=== PATIENT | female | born 1985 | race African-American/Black ===

== ENCOUNTER 2017-09-24 16:46 | Emergency (ER) | payer OTHER ==
--- NOTE | 2017-09-24 16:52 | PDOC ---
Rapid Medical Evaluation Time Seen by Provider: 09/24/17 16:47 Medical Evaluation: 09/24/17 16:47 I have performed a brief in-person evaluation of this patient. The patient presents with a chief complaint of: Left arm pain radiating to b/l shoulders and midsternal chest Pertinent physical exam findings: VSS. Lungs CTAB. 3+ systolic murmur loudest at 3rd ICS left sternal border I have ordered the following: EKG, CXR, urine, labs The patient will proceed to the ED for further evaluation. Discharge Disposition - Diagnosis Chest pain - Referrals - Patient Instructions - Post Discharge Activity
[2017-09-24 17:01] VITALS: TEMP 98.2; BMI 28.3
--- NOTE | 2017-09-24 17:20 | PDOC ---
Attending Attestation - HPI HPI: 09/24/17 17:59 The patient is a 32 year old female with past medical history of elevated testosterone presents to the emergency department with chest pain since morning. The patient reports progressively worsening chest pain, headache and upper extremity pain, which radiates to her neck and jaw with a pressure sensation, mildly aggravated by moving around, no alleviating factor and no meds taken. The patient reports getting an EKG and Echo done April 2018, but don't know the results. 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 The patient reports she doesn't go to the gym regularly. Patient denies fever, chills, cough,and dizziness. Patient denies diaphoresis, palpitations, and shortness of breath. Patient denies nausea, vomiting, diarrhea, and constipation. Patient denies dysuria, frequency, urgency, and hematuria. No surgical history. No family history of heart problems. PCP: Dr. Yoel Zeng Allergies: NKDA Medication: Vitamins and control pills. ' - Physicial Exam PE: 09/24/17 17:59 GENERAL: (+) Masculine features and history of elevated testosterone. well-nourished. No apparent distress. HEENT: Normocephalic, atraumatic. PERRL, EOM intact. CARDIOVASCULAR: Normal S1, S2. Regular rate and rhythm. PULMONARY: Clear to auscultation bilaterally. ABDOMEN: Soft, non-distended, non-tender. EXTREMITIES: Normal ROM in all four extremities. No gross deformities. SKIN: Warm, dry. No rash NEUROLOGICAL: No focal neurological deficits. - Medical Decision Making 09/24/17 18:01 Documentation prepared by Noemi Lepe, acting as medical administrative technician for Yohana Smith MD. <Noemi Lepe - Last Filed: 09/24/17 17:59> - Resident Resident Name: Lusi Kaur - ED Attending Attestation I have performed the following: I have examined & evaluated the patient, The case was reviewed & discussed with the resident, I agree w/resident's findings & plan, Exceptions are as noted - Medical Decision Making 09/24/17 20:48 CTA CHEST - no PE,no dissection,no aortic aneurysm negative trop,normal ekg -the pain in her left forearm follows the ulnar distribution <Yohana Smith - Last Filed: 09/24/17 20:52>
[2017-09-24 17:31] LABS: INR 1.04 (0.82-1.09); PROTHROMBIN TIME (PATIENT) 11.7 SEC (9.7-13.0)
[2017-09-24 17:32] LABS: BASO % 0.4 % (0-2.0); HEMATOCRIT 29.6 % (32.4-45.2); HEMOGLOBIN 9.4 GM/dL (10.7-15.3); LYMPH % 34.9 % (8-40); MCH 21.9 pg (25.7-33.7); MCHC 31.6 g/dl (32.0-36.0); MEAN CELL VOLUME 69.3 fl (80-96); MEAN PLT VOLUME 9.2 fl (7.5-11.1); MONO % 11.1 % (3.8-10.2); NEUT % 50.6 % (42.8-82.8); PLATELET COUNT 244 K/MM3 (134-434); RBC 4.27 M/mm3 (3.60-5.2); RDW 25.5 % (11.6-15.6); WHITE BLOOD COUNT 6.9 K/mm3 (4.0-10.0)
[2017-09-24 17:41] LABS: ALBUMIN 3.6 g/dl (3.4-5.0); ANION GAP 8 (8-16); BLOOD UREA NITROGEN 12 mg/dL (7-18); CALCIUM 8.3 mg/dL (8.5-10.1); CHLORIDE 107 mmol/L (98-107); CO2 24 mmol/L (21-32); CREATININE 0.8 mg/dL (0.55-1.02); GLUCOSE,RANDOM 79 mg/dL (74-106); MAGNESIUM 2.2 mg/dL (1.8-2.4); POTASSIUM 3.9 mmol/L (3.5-5.1); SGOT/AST 17 U/L (15-37); SGPT/ALT 20 U/L (12-78); SODIUM 139 mmol/L (136-145)
[2017-09-24 17:46] LABS: ALK PHOS 42 U/L (45-117); BILIRUBIN,TOTAL 0.2 mg/dL (0.2-1.0)
--- NOTE | 2017-09-24 18:22 | PDOC ---
History of Present Illness - General Chief Complaint: Chest Pain Stated Complaint: CHEST PAIN Time Seen by Provider: 09/24/17 16:47 History Source: Patient Exam Limitations: No Limitations - History of Present Illness Initial Comments: 09/24/17 18:14 Patient is a 32F with history of elevated testosterone here today complaining of chest pain. She states that the pain began in her left arm, then moved to her chest, neck and right arm. Her pain is worse with inspiration and movement. Denies physical activity. Onset was at rest. Denies fevers, chills, nausea, vomiting. Denies leg swelling, recent travel and history of blood clots. Patient states that she's had ECHO done in the past, but does not know the results. Past History - Past Medical History Allergies/Adverse Reactions: Allergies Allergy/AdvReac Type Severity Reaction Status Date / Time No Known Allergies Allergy Verified 09/24/17 16:47 Home Medications: Ambulatory Orders Cholecalciferol (Vitamin D3) [Vitamin D3] 0 unit PO DAILY 09/24/17 Estradiol 3 mg PO DAILY 09/24/17 Iron 0 mg PO DAILY 09/24/17 COPD: No - Suicide/Smoking/Psychosocial Hx Smoking History: Never smoked Have you smoked in the past 12 months: No Information on smoking cessation initiated: No Hx Alcohol Use: No Drug/Substance Use Hx: No Substance Use Type: None Review of Systems - Review of Systems Comments:: 09/24/17 18:22 GENERAL/CONSTITUTIONAL: No fever or chills. No weakness. HEAD, EYES, EARS, NOSE AND THROAT: No change in vision. No sore throat. CARDIOVASCULAR: Positive for chest pain and shortness of breath RESPIRATORY: No cough, wheezing, or hemoptysis. GASTROINTESTINAL: No nausea, vomiting, diarrhea or constipation. GENITOURINARY: No dysuria, frequency, or change in urination. MUSCULOSKELETAL: Positive for pain in left arm. No neck or back pain. SKIN: No rash NEUROLOGIC: No headache, vertigo, loss of consciousness, or change in strength/ sensation. ENDOCRINE: No increased thirst. No abnormal weight change HEMATOLOGIC/LYMPHATIC: No anemia, easy bleeding, or history of blood clots. ALLERGIC/IMMUNOLOGIC: No hives or skin allergy. *Physical Exam - Vital Signs Last Vital Signs Temp Pulse Resp BP Pulse Ox 98.2 F 90 18 128/62 100 09/24/17 16:49 09/24/17 16:49 09/24/17 16:49 09/24/17 16:49 09/24/17 16:49 - Physical Exam Comments: 09/24/17 18:22 GENERAL: Awake, alert, and fully oriented, in no acute distress. Overdeveloped muscles, large amount of body hair HEAD: No signs of trauma, normocephalic, atraumatic EYES: PERRLA, EOMI, sclera anicteric, conjunctiva clear ENT: Auricles normal inspection, hearing grossly normal, nares patent, oropharynx clear without exudates. Moist mucosa NECK: Normal ROM, supple, no lymphadenopathy, JVD, or masses LUNGS: No distress, speaks full sentences, clear to auscultation bilaterally HEART: Regular rate and rhythm, normal S1 and S2, 3/6 systolic clicking murmur. EXTREMITIES: Normal inspection, Normal range of motion, no edema. No clubbing or cyanosis. NEUROLOGICAL: Cranial nerves II through XII grossly intact. Normal speech, normal gait, no focal sensorimotor deficits SKIN: Warm, Dry, normal turgor, no rashes or lesions noted. ED Treatment Course - LABORATORY CBC & Chemistry Diagram: 09/24/17 17:08 09/24/17 17:08 - ADDITIONAL ORDERS Additional order review: Laboratory Results 09/24/17 09/24/17 09/24/17 17:15 17:08 17:08 PT with INR 11.70 INR 1.04 D-Dimer 668 H Sodium 139 Potassium 3.9 Chloride 107 Carbon Dioxide 24 Anion Gap 8 BUN 12 Creatinine 0.8 Creat Clearance w eGFR > 60 Random Glucose 79 Calcium 8.3 L Magnesium 2.2 Total Bilirubin 0.2 AST 17 ALT 20 Alkaline Phosphatase 42 L Creatine Kinase 849 H Troponin I < 0.02 Total Protein 8.0 Albumin 3.6 09/24/17 17:08 RBC 4.27 MCV 69.3 L MCHC 31.6 L RDW 25.5 H MPV 9.2 Neutrophils % 50.6 Lymphocytes % 34.9 Monocytes % 11.1 H Eosinophils % 3.0 Basophils % 0.4 - RADIOLOGY Radiology Studies Ordered: Category Date Time Status CHEST CTA [CT] Stat CT Scan 09/24/17 18:05 Ordered Medical Decision Making - Medical Decision Making 09/24/17 18:23 Patient is 32F with history of elevated testosterone here today complaining of chest pain. Vital signs stable and normal. Patient is on control. control and testosterone both make increased risk of blood clots. DDx includes, but is not limited to: PE, arrhythmia, msk pain. Will evaluate with cbc, cmp, trop, ekg, d-dimer, pt/inr, cxr. EKG shows normal sinus rhythm with rate of 80. No st elevations/depressions. No significant t wave abnormalities. Normal QRS/WI/QTc intervals. Normal EKG. D-dimer elevated, CTA added. CBC reassuring, CMP shows normal kidney function, troponin undetectable. Serum added. Signed out to Dr Bowie, pending CTA. 09/24/17 18:42 Serum negative. *DC/Admit/Observation/Transfer Diagnosis at time of Disposition: Chest pain - Discharge Dispostion Condition at time of disposition: Stable - Referrals Referrals: Yoel Zeng MD [Primary Care Provider] - - Patient Instructions - Post Discharge Activity
--- NOTE | 2017-09-24 18:40 | PDOC ---
*Physical Exam - Vital Signs Last Vital Signs Temp Pulse Resp BP Pulse Ox 98.2 F 90 18 128/62 100 09/24/17 16:49 09/24/17 16:49 09/24/17 16:49 09/24/17 16:49 09/24/17 16:49 - Physical Exam Comments: 09/24/17 18:57 GENERAL: Awake, alert, and fully oriented, in no acute distress HEAD: No signs of trauma, normocephalic, atraumatic EYES: PERRLA, EOMI, sclera anicteric, conjunctiva clear ENT: Hearing grossly normal, nares patent, oropharynx clear without exudates. Moist mucosa NECK: Normal ROM, supple, no lymphadenopathy, JVD, or masses LUNGS: No distress, speaks full sentences, clear to auscultation bilaterally HEART: Regular rate and rhythm, normal S1 and S2, no murmurs, rubs or gallops, peripheral pulses normal and equal bilaterally. EXTREMITIES : Normal inspection, Normal range of motion, no edema. No clubbing or cyanosis. SKIN: Warm, Dry, normal turgor, no rashes or lesions noted <Didier Bowie - Last Filed: 09/24/17 20:32> - Vital Signs Last Vital Signs Temp Pulse Resp BP Pulse Ox 98.2 F 82 18 117/77 100 09/24/17 16:49 09/24/17 20:48 09/24/17 20:48 09/24/17 20:48 09/24/17 20:48 <Yohana Smith - Last Filed: 09/24/17 20:59> ED Treatment Course - LABORATORY CBC & Chemistry Diagram: 09/24/17 17:08 09/24/17 17:08 - ADDITIONAL ORDERS Additional order review: Laboratory Results 09/24/17 09/24/17 09/24/17 18:07 17:15 17:08 PT with INR INR D-Dimer 668 H Sodium 139 Potassium 3.9 Chloride 107 Carbon Dioxide 24 Anion Gap 8 BUN 12 Creatinine 0.8 Creat Clearance w eGFR > 60 Random Glucose 79 Calcium 8.3 L Magnesium 2.2 Total Bilirubin 0.2 AST 17 ALT 20 Alkaline Phosphatase 42 L Creatine Kinase 849 H Creatine Kinase Index 0.1 CK-MB (CK-2) < 1.000 Troponin I < 0.02 Total Protein 8.0 Albumin 3.6 Serum , Qual Negative 09/24/17 17:08 PT with INR 11.70 INR 1.04 D-Dimer Sodium Potassium Chloride Carbon Dioxide Anion Gap BUN Creatinine Creat Clearance w eGFR Random Glucose Calcium Magnesium Total Bilirubin AST ALT Alkaline Phosphatase Creatine Kinase Creatine Kinase Index CK-MB (CK-2) Troponin I Total Protein Albumin Serum , Qual 09/24/17 17:08 RBC 4.27 MCV 69.3 L MCHC 31.6 L RDW 25.5 H MPV 9.2 Neutrophils % 50.6 Lymphocytes % 34.9 Monocytes % 11.1 H Eosinophils % 3.0 Basophils % 0.4 <Didier Bowie - Last Filed: 09/24/17 20:32> - LABORATORY CBC & Chemistry Diagram: 09/24/17 17:08 09/24/17 17:08 - ADDITIONAL ORDERS Additional order review: Laboratory Results 09/24/17 09/24/17 09/24/17 18:07 17:15 17:08 PT with INR INR D-Dimer 668 H Sodium 139 Potassium 3.9 Chloride 107 Carbon Dioxide 24 Anion Gap 8 BUN 12 Creatinine 0.8 Creat Clearance w eGFR > 60 Random Glucose 79 Calcium 8.3 L Magnesium 2.2 Total Bilirubin 0.2 AST 17 ALT 20 Alkaline Phosphatase 42 L Creatine Kinase 849 H Creatine Kinase Index 0.1 CK-MB (CK-2) < 1.000 Troponin I < 0.02 Total Protein 8.0 Albumin 3.6 Serum , Qual Negative 09/24/17 17:08 PT with INR 11.70 INR 1.04 D-Dimer Sodium Potassium Chloride Carbon Dioxide Anion Gap BUN Creatinine Creat Clearance w eGFR Random Glucose Calcium Magnesium Total Bilirubin AST ALT Alkaline Phosphatase Creatine Kinase Creatine Kinase Index CK-MB (CK-2) Troponin I Total Protein Albumin Serum , Qual 09/24/17 17:08 RBC 4.27 MCV 69.3 L MCHC 31.6 L RDW 25.5 H MPV 9.2 Neutrophils % 50.6 Lymphocytes % 34.9 Monocytes % 11.1 H Eosinophils % 3.0 Basophils % 0.4 <Yohana Smith - Last Filed: 09/24/17 20:59> Medical Decision Making - Medical Decision Making 09/24/17 18:39 32 yo F with h/o elevated testosterone who p/w pleuritic L sided chest pain. Pain initially with left arm with radiation to left shoulder and chest. Recieved handoff from Dr. Kaur. VSS, AF, On OCP. No h/o DVT/PE. D-dimer 668. Trop Neg. HCG Neg. H/H: 9.4/24.6. Patient pending chest CTA. R/o PE. CXR: Unremarkable. No evidence of PNA. EKG: NSR with absent LIA, STD. Nml interval duration and axis. ED Course: 09/24/17 20:32 CTA Chest: Unremarkable. No evidence of PE. Patient stable for d/c with return precautions. <Didier Bowie - Last Filed: 09/24/17 20:32> *DC/Admit/Observation/Transfer - Attestations Physician Attestion: 09/24/17 20:37 I attest to the information provided in this note. <Didier Bowie - Last Filed: 09/24/17 20:32> <Yohana Smith - Last Filed: 09/24/17 20:59> Diagnosis at time of Disposition: Chest pain Qualifiers: Chest pain type: unspecified Qualified Code(s): R07.9 - Chest pain, unspecified - Discharge Dispostion Disposition: HOME Condition at time of disposition: Stable - Referrals Referrals: Yoel Zeng MD [Primary Care Provider] - Surinder Fernández MD [Staff Physician] - - Patient Instructions Printed Discharge Instructions: DI for Atypical Chest Pain Additional Instructions: Please return to the emergency department with any new or worsening symptoms or concerns. Please follow up with your primary care physician within 72 hours. - Post Discharge Activity
[2017-09-24 20:49] VITALS: BP 117/77; PULSE 82
--- NOTE | 2017-09-25 11:55 | EKG ---
Test Reason : Blood Pressure : / mmHG Vent. Rate : 080 BPM Atrial Rate : 080 BPM P-R Int : 174 ms QRS Dur : 080 ms QT Int : 366 ms P-R-T Axes : 062 042 041 degrees QTc Int : 422 ms NORMAL SINUS RHYTHM NORMAL ECG NO PREVIOUS ECGS AVAILABLE Confirmed by MD CHRISTIANNE, GERBER ([id number]) on 09/25/2017 11:54:55 AM Referred By: Confirmed By:GERBER FAUST MD
== END 2017-09-24 21:02 | disposition home or self-care (01) ==
LOC: JER 16:46
DX: R07.9 Chest pain, unspecified (principal); E34.8 Other specified endocrine disorders
CPT/HCPCS: 36415; 71046-TC-FY; 71275-TC; 80053; 82550; 82553; 83735; 84484; 84703; 85025; 85379; 85610; 93005; 93010; 99283-25